=== PATIENT | female | born 1945 | race Asian ===

== ENCOUNTER 2023-06-18 07:10 | Day surgery (SDC) | payer OTHER ==
[~2023-06-18] VITALS: Ht 149.9 cm; Wt 35.8 kg
[2023-06-18] MEDS ORDERED: MIDAZOLAM 5 MG/5 ML VIAL ONE (08:17)
[2023-06-18] MEDS ORDERED: fentaNYL citrate 0.05 MG/ML VIAL ONE (08:17)
[2023-06-18] MEDS ORDERED: LIDOCAINE 2% 100 MG/5 ML UJET TP ONE (08:17)
[2023-06-18] MEDS ORDERED: fentaNYL citrate 0.05 MG/ML VIAL IVP ONE (09:45)
== END 2023-06-18 09:35 | disposition home or self-care (01) ==
LOC: MDS 07:10 → MMU 07:17 → MDS 09:35
PROVIDERS: ATTEND Internal Medicine Gastroenterology
DX: R63.4 Abnormal weight loss (principal); D12.3 Benign neoplasm of transverse colon; D12.5 Benign neoplasm of sigmoid colon; K59.00 Constipation, unspecified; K57.30 Diverticulosis of large intestine without perforation or abscess without bleeding; E05.90 Thyrotoxicosis, unspecified without thyrotoxic crisis or storm; Z88.1 Allergy status to other antibiotic agents; Z79.899 Other long term (current) drug therapy
CPT/HCPCS: 45385; J3010; J2250